=== PATIENT | male | born 1995 ===

== ENCOUNTER 2017-10-27 15:39 | Emergency (ER) | payer SELFPAY ==
[2017-10-27 16:04] VITALS: BMI 21.7
[2017-10-27 17:30] VITALS: TEMP 98
[2017-10-27] MEDS ORDERED: Amoxicillin-Clav 875-125 mg Tab PO STA (17:36)
--- NOTE | 2017-10-27 18:37 | ED PDOC ---
Arrival/HPI - General Chief Complaint: Dental Pain Time Seen by Provider: 10/27/17 17:35 Historian: Patient - History of Present Illness Narrative History of Present Illness (Text): 10/27/17 19:25 22yr old male presents today with 1 week history of ulcer to left side of mucosa of mouth. pt denies fever/chills. pt states he bit his cheek about a week ago and he thought it would heal but it has not. He denies dizziness or weakness. Denies trismus or drooling. He denies any dental pain. No medications have been taken at home. No other complaints Time/Duration: 1 week Past Medical History - Provider Review Nursing Documentation Reviewed: Yes - Travel History Have you recently traveled outside [place] w/in the past 3 mons?: No - Infectious Disease Hx of Infectious Diseases: None - Tetanus Immunization Tetanus Immunization: Up to Date - Psychiatric Hx Substance Use: No - Anesthesia Hx Anesthesia: No Family/Social History - Physician Review Nursing Documentation Reviewed: Yes Family/Social History: Unknown Family HX Smoking Status: Never Smoked Hx Alcohol Use: No Hx Substance Use: No Allergies/Home Meds Allergies/Adverse Reactions: Allergies No Known Allergies Allergy (Verified 10/27/17 16:03) Review of Systems - Review of Systems Constitutional: absent: Fatigue, Fevers Respiratory: absent: SOB, Cough Cardiovascular: absent: Chest Pain, Palpitations Gastrointestinal: absent: Abdominal Pain, Nausea, Vomiting Genitourinary Male: absent: Dysuria, Frequency, Hematuria Musculoskeletal: absent: Arthralgias, Back Pain, Neck Pain Skin: Skin Lesions. absent: Pruritis Neurological: absent: Headache, Dizziness Psychiatric: absent: Anxiety, Depression Physical Exam Vital Signs Reviewed: Yes Vital Signs Temp Pulse Resp BP Pulse Ox 10/27/17 17:29 98 F 72 19 119/52 L 99 10/27/17 15:59 98.7 F 72 16 115/72 99 Temperature: Afebrile Blood Pressure: Normal Pulse: Regular Respiratory Rate: Normal Appearance: Positive for: Well-Appearing, Non-Toxic, Comfortable Pain Distress: None Mental Status: Positive for: Alert and Oriented X 3 - Systems Exam Head: Present: Atraumatic Mouth: Present: Moist Mucous Membranes, Normal Lips, Normal Tounge, Other ( there is a small 0.5cm ulceration noted to the mucosa of the mouth just adjacent to the left lower molar; no surrounding erythema; no purulent discharge. ). No: Drooling, Trismus Pharnyx: Present: Normal. No: ERYTHEMA, EXUDATE, TONSILS ENLARGED Nose (External): Present: Atraumatic Neck: Present: Normal Range of Motion, Trachea Midline. No: Lymphadenopathy Respiratory/Chest: Present: Clear to Auscultation, Good Air Exchange. No: Respiratory Distress, Accessory Muscle Use Cardiovascular: Present: Regular Rate and Rhythm, Normal S1, S2. No: Murmurs Neurological: Present: GCS=15, Speech Normal Skin: Present: Warm, Dry, Normal Color. No: Rashes Psychiatric: Present: Alert, Oriented x 3 Medical Decision Making ED Course and Treatment: 10/27/17 19:29 Patient is nontoxic well-appearing in no distress with stable vital signs No trismus or drooling, moist mucous membranes augmentin given po I advised follow-up with the dentist within the next 2 days. Advised patient that he must follow-up with a dentist due to nonhealing wound to further evaluate for any other causes of the wound including cancerous lesion. I advised immediate return is symptoms worsen persist or if new concerning symptoms develop Patient verbalizes understanding of discharge instructions and need for immediate followup. all aspects of this case were discussed the attending of record. Impression: Ulcer, wound of mouth augmentin twice daily x 7 days increase fluids follow up with the Dentist within the next 2 days. Follow up with the primary care physician within the next 2 days. Return if symptoms worsen,persist or if new symptoms develop. [facility] [address] [place] [address] [address] [place], [place] [phone] - Medication Orders Current Medication Orders: Discontinued Medications Amoxicillin/Clavulanate Potassium (Augmentin 875 Mg-125 Mg Tab) 1 tab PO STAT STA PRN Reason: Protocol Stop: 10/27/17 17:37 Last Admin: 10/27/17 17:43 Dose: 1 tab Ibuprofen (Motrin Tab) 600 mg PO STAT STA Stop: 10/27/17 17:37 Last Admin: 10/27/17 17:43 Dose: 600 mg MAR Pain/Vitals Document 10/27/17 17:43 SF (Rec: 10/27/17 17:43 SF [id number]) Pain Reassessment Is This A Pain ReAssessment? Yes Sleep Is patient sleeping during reassessment? No Presence of Pain Presence of Pain Yes Pain Scale Used Pain Scale Used Numeric Disposition/Present on Arrival - Present on Arrival Any Indicators Present on Arrival: No History of DVT/PE: No History of Uncontrolled Diabetes: No Urinary Catheter: No History of Decub. Ulcer: No History Surgical Site Infection Following: None - Disposition Have Diagnosis and Disposition been Completed?: Yes Diagnosis: Aphthous ulcer, Wound, open, mouth Disposition: HOME/ ROUTINE Disposition Time: 18:35 Patient Plan: Discharge Condition: GOOD Discharge Instructions (ExitCare): Mouth Sores (DC) Additional Instructions: augmentin twice daily x 7 days increase fluids follow up with the Dentist within the next 2 days. Follow up with the primary care physician within the next 2 days. Return if symptoms worsen,persist or if new symptoms develop. [facility] [address] [facility] [phone] [address] [place], [place] [phone] Prescriptions: Amoxicillin/Clavulanate [Augmentin 400-57] 875 mg PO BID #1 bottle Referrals: [facility] [place] [Outside] - Follow up with primary Angel Vega DMD [Staff Provider] - Follow up with primary Bill Del Cid DMD [Non-Staff] - Follow up with primary Klever Casey MD [Medical Doctor] - Follow up with primary Forms: [employer] ([place]ian), WORK NOTE
[2017-10-27 18:59] VITALS: BP 118/70; PULSE 70; RESP 18; O2SAT 100
== END 2017-10-27 18:58 | disposition home or self-care (01) ==
LOC: ED 15:39
DX: K12.0 Recurrent oral aphthae (principal); S01.552A Open bite of oral cavity, initial encounter